=== PATIENT | male | born 1960 | race Native Hawaiian/Other Pacific Islander ===

== ENCOUNTER 2018-02-09 12:39 | Emergency (ER) | payer BC ==
[2018-02-09 12:53] VITALS: TEMP 97.5; O2SAT 100
[2018-02-09] MEDS ORDERED: Sodium Chloride 0.9% 1,000 ML IV ONE (13:00)
[2018-02-09 13:05] LABS: SQUAMOUS EPITHIAL 1 /hpf (0-5); URINE BACTERIA OCC (<OCC); URINE BILIRUBIN NEGATIVE (NEGATIVE); URINE BLOOD 3+ (NEGATIVE); URINE CLARITY Hazy (Clear); URINE COLOR Yellow (YELLOW); URINE GLUCOSE (UA) NORMAL (Normal); URINE LEUKOCYTE ESTERASE NEG Leu/uL (Negative); URINE PROTEIN 1+ mg/dL (NEGATIVE); URINE UROBILINOGEN NORMAL mg/dL (0.2-1.0)
[2018-02-09] MEDS ORDERED: Sodium Chloride 0.9% 1,000 ML ONE (13:06)
[2018-02-09 13:10] LABS: BASO # 0.1 K/uL (0.0-0.2); BASO % 0.7 % (0.0-2.0); EOS # 0.4 K/uL (0.0-0.7); EOS % 3.7 % (0.0-4.0); HEMOGLOBIN 13.3 g/dL (12.0-18.0); LYMPH % 20.4 % (20.0-40.0); MEAN CELL VOLUME 88.4 fL (80.0-94.0); MEAN CORPUSCULAR HEMOGLOBIN 30.4 pg (27.0-31.0); MEAN CORPUSCULAR HGB CONC 34.4 g/dL (33.0-37.0); MEAN PLATELET VOLUME 8.1 fL (7.2-11.7); MONO # 0.8 K/uL (0.0-0.8); MONO % 7.9 % (0.0-10.0); NEUT # 6.7 K/uL (1.8-7.0); NEUT % 67.3 % (50.0-75.0); NRBC % 0.1 % (0.0-2.0); RBC 4.38 Mil/uL (4.40-5.90); RED CELL DISTRIBUTION WIDTH 12.5 % (11.5-14.5); WHITE BLOOD COUNT 9.9 K/uL (4.8-10.8)
[2018-02-09 13:14] LABS: URINE URIC ACID CRYSTALS FEW /hpf (<OCC)
[2018-02-09 13:50] LABS: ALB/GLOB RATIO 1.7 (1.0-2.1); ALBUMIN 4.8 g/dL (3.5-5.0); ALT/SGPT 26 U/L (21-72); AST/SGOT 31 U/L (17-59); BLOOD UREA NITROGEN 18 mg/dL (9-20); GFR NON-AFRICAN AMERICAN > 60; LIPASE 222 U/L (23-300)
--- NOTE | 2018-02-09 14:26 | CT ---
Date of service: 02/09/2018 PROCEDURE: CT Abdomen and Pelvis without intravenous contrast HISTORY: R flank sudden, ? renal colic COMPARISON: None. TECHNIQUE: Without contrast.. Contrast dose: Radiation dose: Total exam DLP = 960 mGy-cm. This CT exam was performed using one or more of the following dose reduction techniques: Automated exposure control, adjustment of the mA and/or kV according to patient size, and/or use of iterative reconstruction technique. FINDINGS: LOWER THORAX: Unremarkable. LIVER: Unremarkable. No gross lesion or ductal dilatation. GALLBLADDER AND BILE DUCTS: Unremarkable. PANCREAS: Unremarkable. No gross lesion or ductal dilatation. SPLEEN: Unremarkable. ADRENALS: Unremarkable. No mass. KIDNEYS AND URETERS: 5 to 6 mm proximal right ureteral calculus resulting in right hydro ureteral nephrosis.. Multiple bilateral renal masses many are exophytic and compatible with cysts. However many-primarily the smaller bilateral renal masses are hyperdense-less than 1 cm in size-their etiology is indeterminate-tiny hemorrhagic cysts can simulate this. follow-up imaging to ensure stability recommended. VASCULATURE: Phleboliths-pelvis no aortic aneurysm. There is presence of aortic atherosclerotic calcification and mural plaque on cross sectional studies. BOWEL: There is incomplete focal distension focal peristalsis and/or focal colonic mural thickening-rectosigmoid (series 2, image 71). Findings are indeterminate. Circumferential rectal mural thickening perceived. Moderate stool throughout the transverse colon. Right sub mucosal edema perceived clinical gastroenterology follow-up recommended. Correlate with any recent colonoscopy. If none, gastroenterology follow-up recommended APPENDIX: Unremarkable. Normal appendix. PERITONEUM: Unremarkable. No free fluid. No free air. LYMPH NODES: Unremarkable. No enlarged lymph nodes. BLADDER: Incompletely distended relative bladder wall generalized thickening-nonspecific given degree of distension. REPRODUCTIVE: Prostatic calcification prostate 3.1 x 4.6 cm on axial imaging BONES: No acute fracture. OTHER FINDINGS: Fatty bilateral groin hernias. No bowel containing hernias appreciated IMPRESSION: 5 to 6 mm proximal right ureteral calculus resulting in right hydro ureteral nephrosis. Multiple other findings as detailed above.
--- NOTE | 2018-02-09 14:31 | C.PDOC ---
History Of Present Illness 57 y/o male presents to the ER complaining of sudden onset of right flank pain which began today. Patient states that the pain is non-radiating. Patient denies having fever, chills, dysuria, hematuria, and hx of renal colic. Time Seen by Provider: 02/09/18 12:59 Chief Complaint (Nursing): Male Genitourinary History Per: Patient History/Exam Limitations: no limitations Onset/Duration Of Symptoms: Hrs Current Symptoms Are (Timing): Still Present Severity: Moderate Past Medical History Reviewed: Historical Data, Nursing Documentation, Vital Signs Vital Signs: Last Vital Signs Temp 97.5 F L 02/09/18 12:50 Pulse 52 L 02/09/18 12:50 Resp 19 02/09/18 12:50 BP 180/69 H 02/09/18 12:50 Pulse Ox 100 02/09/18 12:50 - Medical History PMH: Hypercholesterolemia Other Surgeries: Hx of surgeries Family History: States: No Known Family Hx - Social History Hx Alcohol Use: No Hx Substance Use: No - Immunization History Hx Tetanus Toxoid Vaccination: No Hx Influenza Vaccination: No Hx Pneumococcal Vaccination: No Review Of Systems Except As Marked, All Systems Reviewed And Found Negative. Constitutional: Negative for: Fever, Chills Gastrointestinal: Negative for: Nausea, Vomiting Genitourinary: Negative for: Dysuria, Hematuria Musculoskeletal: Positive for: Other (right flank pain) Physical Exam - Physical Exam Appears: Non-toxic, No Acute Distress Skin: Normal Color, Warm, Dry Head: Atraumatic, Normacephalic Eye(s): bilateral: Normal Inspection Nose: Normal Oral Mucosa: Moist Neck: Supple Chest: Symmetrical Cardiovascular: Rhythm Regular Respiratory: Normal Breath Sounds, No Rales, No Rhonchi, No Wheezing Gastrointestinal/Abdominal: Soft, No Tenderness, No Guarding, No Rebound, Other (dull to percussion) Back: CVA Tenderness (right sided CVA tenderness) Neurological/Psych: Oriented x3, Normal Speech ED Course And Treatment - Laboratory Results Result Diagrams: 02/09/18 13:07 02/09/18 13:07 Lab Interpretation: Abnormal (ua 1200 RBC's) O2 Sat by Pulse Oximetry: 100 (RA) Pulse Ox Interpretation: Normal - CT Scan/US CT-Abd & Pelv. Other Rad Studies (CT/US): Read By Radiologist, Radiology Report Reviewed CT/US Interpretation: Date of service: 02/09/2018. PROCEDURE: CT Abdomen and Pelvis without intravenous contrast. HISTORY: R flank sudden, ? renal colic. COMPARISON: None. TECHNIQUE: Without contrast.. Contrast dose: Radiation dose: Total exam DLP = 960 mGy-cm. This CT exam was performed using one or more of the following dose reduction techniques: Automated exposure control, adjustment of the mA and/or kV according to patient size, and/or use of iterative reconstruction technique. FINDINGS: LOWER THORAX: Unremarkable. LIVER: Unremarkable. No gross lesion or ductal dilatation. GALLBLADDER AND BILE DUCTS: Unremarkable. PANCREAS: Unremarkable. No gross lesion or ductal dilatation. SPLEEN: Unremarkable. ADRENALS: Unremarkable. No mass. KIDNEYS AND URETERS: 5 to 6 mm proximal right ureteral calculus resulting in right hydro ureteral nephrosis.. Multiple bilateral renal masses many are exophytic and compatible with cysts. However many-primarily the smaller bilateral renal masses are hyperdense-less than 1 cm in size-their etiology is indeterminate- tiny hemorrhagic cysts can simulate this. follow-up imaging to ensure stability recommended. VASCULATURE: Phleboliths-pelvis no aortic aneurysm. There is presence of aortic atherosclerotic calcification and mural plaque on cross sectional studies. BOWEL: There is incomplete focal distension focal peristalsis and/or focal colonic mural thickening-rectosigmoid (series 2, image 71). Findings are indeterminate. Circumferential rectal mural thickening perceived. Moderate stool throughout the transverse colon. Right sub mucosal edema perceived clinical gastroenterology follow-up recommended. Correlate with any recent colonoscopy. If none, gastroenterology follow-up recommended. APPENDIX: Unremarkable. Normal appendix. PERITONEUM: Unremarkable. No free f luid. No free air. LYMPH NODES: Unremarkable. No enlarged lymph nodes. BLADDER: Incompletely distended relative bladder wall generalized thickening- nonspecific given degree of distension. REPRODUCTIVE: Prostatic calcification prostate 3.1 x 4.6 cm on axial imaging. BONES: No acute fracture. OTHER FINDINGS: Fatty bilateral groin hernias. No bowel containing hernias appreciated. IMPRESSION: 5 to 6 mm proximal right ureteral calculus resulting in right hydro ureteral nephrosis. Multiple other findings as detailed above. Medical Decision Making Medical Decision Making: R renal colic 3-6 mg R proximal stone Disposition Doctor Will See Patient In The: Office Counseled Patient/Family Regarding: Studies Performed, Diagnosis - Disposition Referrals: Yamile Belcher MD [Medical Doctor] - Benny Nunez MD [Staff Provider] - Disposition: HOME/ ROUTINE Disposition Time: 14:32 Condition: GOOD Additional Instructions: drink plenty of fluids strain all urine to find the 3-6 mg renal calculus/stone Motrin/Advil 600 mg every 6 hours as needed for pain Tramadol 50 mg (narcotic pain med) 1 tab every 4 hours as needed for more severe pain Follow-up w Dr. Nunez- Urology Planning Assistant- for further eval as needed Prescriptions: traMADol [Ultram] 50 mg PO Q6H PRN #10 tab PRN Reason: pain Instructions: Renal Colic Forms: [employer] (Lithuanian) - Clinical Impression Clinical Impression: Renal colic on right side - Scribe Statement The provider has reviewed the documentation as recorded by the Scribe Rubi Gurrola Provider Attestation: All medical record entries made by the Scribe were at my direction and personally dictated by me. I have reviewed the chart and agree that the record accurately reflects my personal performance of the history, physical exam, medical decision making, and the department course for this patient. I have also personally directed, reviewed, and agree with the discharge instructions and disposition.
[2018-02-09 15:44] VITALS: BP 144/73; PULSE 59; RESP 18
--- NOTE | 2018-02-11 07:33 | CARD ---
APPROVED REPORT Date of service: 02/09/2018 EKG Measurement Heart [id number] <Conclusion> Sinus bradycardia Otherwise normal ECG
== END 2018-02-09 15:46 | disposition home or self-care (01) ==
LOC: C.ER 12:39
DX: N13.2 Hydronephrosis with renal and ureteral calculous obstruction (principal)
CPT/HCPCS: 74176; 80053; 81001; 83690; 85025; 93005; 96361; 96374; 99284; J1885; J7030

== ENCOUNTER 2018-02-10 11:45 | Inpatient (IN) | payer BC ==
--- NOTE | 2018-02-10 12:09 | C.PDOC ---
History Of Present Illness 57 year old male was evaluated in this ED yesterday for right-sided flank pain and was discharged home with diagnosis of renal stone. Patient returns to the ED today with complaint of ongoing pain that is associated with nausea and vomiting. Patient's attempted to schedule an appointment with Dr. Nunez, but was unable to do so and patient was brought to the ED for further evaluation. He denies fever, chills. Time Seen by Provider: 02/10/18 11:49 Chief Complaint (Nursing): GI Problem History Per: Patient History/Exam Limitations: no limitations Onset/Duration Of Symptoms: Hrs, Persistent Current Symptoms Are (Timing): Still Present Radiation Of Pain To:: Flank (right) Quality Of Discomfort: "Pain" Associated Symptoms: Nausea, Vomiting. denies: Fever, Chills Additional History Per: Patient Past Medical History Reviewed: Historical Data, Nursing Documentation, Vital Signs Vital Signs: Last Vital Signs Temp 97.9 F 02/10/18 11:54 Pulse 58 L 02/10/18 11:54 Resp 18 02/10/18 11:54 BP 150/78 02/10/18 11:54 Pulse Ox 99 02/10/18 11:54 - Medical History PMH: Hypercholesterolemia, Kidney Stones, Chronic Kidney Disease Surgical History: No Surg Hx Family History: States: Unknown Family Hx - Social History Hx Alcohol Use: No Hx Substance Use: No - Immunization History Hx Tetanus Toxoid Vaccination: No Hx Influenza Vaccination: No Hx Pneumococcal Vaccination: No Review Of Systems Constitutional: Negative for: Fever, Chills Gastrointestinal: Positive for: Nausea, Vomiting Musculoskeletal: Positive for: Other (right flank pain ) Physical Exam - Physical Exam Appears: Non-toxic, No Acute Distress Skin: Normal Color, Warm, Dry Head: Atraumatic, Normacephalic Eye(s): bilateral: Normal Inspection Oral Mucosa: Moist Neck: Supple Chest: Symmetrical, No Deformity, No Tenderness Cardiovascular: Rhythm Regular, No Murmur Respiratory: Normal Breath Sounds, No Rales, No Rhonchi, No Wheezing Gastrointestinal/Abdominal: Soft, No Tenderness, No Guarding Back: CVA Tenderness (right) Extremity: Normal ROM, Capillary Refill (less than 2 seconds ) Neurological/Psych: Oriented x3, Normal Speech, Normal Cognition ED Course And Treatment O2 Sat by Pulse Oximetry: 99 (on RA) Pulse Ox Interpretation: Normal Medical Decision Making Medical Decision Making: Assessment: renal colic Plan: * bloodwork * urinalysis * Abdomen XR * Toradol IVP * Zofran IVP * reassess and disposition Progress: Bloodwork, urinalysis, Abdomen XR ordered and reviewed. Toradol IVP and Zofran IVP given. Patient will be admitted to Dr. Belcher's service with Dr. Nunez for consult. Disposition Discussed With DrBrooke: Yamile Belcher Doctor Will See Patient In The: Hospital Counseled Patient/Family Regarding: Studies Performed, Diagnosis - Disposition Disposition: HOSPITALIZED Disposition Time: 12:09 Condition: FAIR - Clinical Impression Clinical Impression: Renal stone - Scribe Statement The provider has reviewed the documentation as recorded by the Scribe (Yancy Hammond) Provider Attestation: All medical record entries made by the Scribe were at my direction and personally dictated by me. I have reviewed the chart and agree that the record accurately reflects my personal performance of the history, physical exam, medical decision making, and the department course for this patient. I have also personally directed, reviewed, and agree with the discharge instructions and disposition.
[2018-02-10 12:25] LABS: BASO % 0.4 % (0.0-2.0); EOS # 0.1 K/uL (0.0-0.7); HEMOGLOBIN 12.2 g/dL (12.0-18.0); LYMPH # 0.9 K/uL (1.0-4.3); LYMPH % 9.3 % (20.0-40.0); MEAN CELL VOLUME 87.8 fL (80.0-94.0); MEAN CORPUSCULAR HEMOGLOBIN 30.4 pg (27.0-31.0); MEAN CORPUSCULAR HGB CONC 34.6 g/dL (33.0-37.0); MEAN PLATELET VOLUME 8.3 fL (7.2-11.7); MONO # 0.7 K/uL (0.0-0.8); MONO % 6.6 % (0.0-10.0); NEUT # 8.3 K/uL (1.8-7.0); NEUT % 82.7 % (50.0-75.0); PLATELET COUNT 191 K/uL (130-400); RBC 4.03 Mil/uL (4.40-5.90); RED CELL DISTRIBUTION WIDTH 12.2 % (11.5-14.5); WHITE BLOOD COUNT 10.1 K/uL (4.8-10.8)
--- NOTE | 2018-02-10 12:30 | RAD ---
Date of service: 02/10/2018 HISTORY: evaluate kidney stone COMPARISON: CT 02/09/2018 FINDINGS: BOWEL: Normal. No obstruction. No free air. No abnormal intra-abdominal calcifications are identified. No hepatic or splenic enlargement. The psoas margins are preserved. Left renal contour is well-defined. The right renal contour is not well defined. BONES: Normal. OTHER FINDINGS: None. IMPRESSION: No ureteral calculus identified.
[2018-02-10] MEDS ORDERED: Sodium Chloride 0.9% 1,000 ML IV ONE (12:44)
[2018-02-10 12:55] LABS: ALB/GLOB RATIO 1.5 (1.0-2.1); ALBUMIN 3.9 g/dL (3.5-5.0); ALT/SGPT 24 U/L (21-72); AST/SGOT 25 U/L (17-59); BLOOD UREA NITROGEN 13 mg/dL (9-20); CALCIUM 7.8 mg/dl (8.6-10.4); GFR NON-AFRICAN AMERICAN > 60; LIPASE 54 U/L (23-300)
--- NOTE | 2018-02-10 12:59 | CP.PCM.HP ---
History of Present Illness - History of Present Illness History of Present Illness: 57 y.o male with no significant PMH othjer than Borderline Glaucoma, Elevated sugar and cholesterol came to ER due to all night long vomiting , right back pain and dizziness. Patient was given Tylenol number 3 for pain aand zofran for vomiting and IVF . Patient had temporary relief but symptoms recur befdore the medications are due. Patient develoed weakness dizziness. He denies fever diarrhea chest pain syncope. Patient went to see Urologist today but ended up in ER due to worsening dizziness pain and vomiting. patient was in ER yesterday due to untolerable acute right back pain, found to have Ureteral stone. patient was given pain meds and IVF ,got better , and sent home to follow up with urologist PMH no DM no Hypertension has borderline Cholesterol and AIC 6.2 -6.5 and started on metformin and statin He has Glaucoma- on 2 eye drops Combigan and Latanoprost Surgery left knee arthroscopy NKDA NON ETOH non Smoker Present on Admission - Present on Admission Any Indicators Present on Admission: No History of DVT/PE: No History of Uncontrolled Diabetes: No Urinary Catheter: No Decubitus Ulcer Present: No Review of Systems - Constitutional Constitutional: Anorexia, Weakness - EENT Eyes: absent: Other Visual Disturbances Ears: Dizziness Nose/Mouth/Throat: absent: Nasal Congestion, Sinus Pain - Cardiovascular Cardiovascular: Lightheadedness. absent: Chest Pain, Diaphoresis, Rapid Heart Rate, Syncope - Respiratory Respiratory: absent: Cough, Dyspnea, Chest Congestion - Gastrointestinal Gastrointestinal: Abdominal Pain (right back ), Vomiting (all night long). abse nt: Diarrhea - Genitourinary Genitourinary: Hx Renal/Bladder Calculi (renal- diagnosed yesterday ). absent: Difficulty Urinating, Dysuria - Musculoskeletal Musculoskeletal: absent: Abnormal Gait, Deformity, Myalgias, Stiffness - Integumentary Integumentary: absent: Rash, Skin Pain - Neurological Neurological: Dizziness. absent: Abnormal Gait, Abnormal Speech, Behavioral Changes, Convulsions - Psychiatric Psychiatric: absent: Behavioral Changes, Confusion, Depression - Endocrine Endocrine: absent: Cold Intolorance, Flushing, Heat Intolorance, Palpitations - Hematologic/Lymphatic Hematologic: absent: Easy Bleeding, Easy Bruising Past Patient History - Infectious Disease Hx of Infectious Diseases: None - Past Social History Smoking Status: Never Smoked - CARDIAC Hx Hypercholesterolemia: Yes - HEENT Hx HEENT Problems: Yes Hx Glaucoma: Yes (both eyes) - RENAL Hx Chronic Kidney Disease: Yes Hx Kidney Stones: Yes - ENDOCRINE/METABOLIC Hx Diabetes Mellitus Type 2: Yes - GASTROINTESTINAL Hx Gastrointestinal Disorders: Yes Other/Comment: acute cholecystitis DX 02/09/2018 - PSYCHIATRIC Hx Substance Use: No - SURGICAL HISTORY Hx Surgeries: Yes Hx Orthopedic Surgery: Yes (Left knee arthroscopy) - ANESTHESIA Hx Anesthesia Reactions: No Meds Allergies/Adverse Reactions: Allergies Allergy/AdvReac Type Severity Reaction Status Date / Time No Known Allergies Allergy Verified 02/10/18 11:54 Physical Exam - Constitutional Appears: Well, No Acute Distress - Head Exam Head Exam: ATRAUMATIC, NORMOCEPHALIC - Eye Exam Eye Exam: Normal appearance. absent: Nystagmus, Periorbital tenderness - ENT Exam ENT Exam: Mucous Membranes Dry - Neck Exam Neck exam: Positive for: Full Rom. Negative for: Tenderness - Respiratory Exam Respiratory Exam: Clear to Auscultation Bilateral, NORMAL BREATHING PATTERN - Cardiovascular Exam Cardiovascular Exam: REGULAR RHYTHM - GI/Abdominal Exam GI & Abdominal Exam: Normal Bowel Sounds, Soft. absent: Tenderness ( right back pain- episodic) - Extremities Exam Extremities exam: Positive for: full ROM, normal inspection. Negative for: joint swelling, pedal edema, tenderness - Back Exam Back exam: tenderness (on and off right ). absent: rash noted - Neurological Exam Neurological exam: Alert, Normal Gait, Oriented x3, Reflexes Normal - Psychiatric Exam Psychiatric exam: Normal Affect, Normal Mood - Skin Skin Exam: Intact, Normal Color Results - Vital Signs Recent Vital Signs: Last Vital Signs Temp 97.9 F 02/10/18 11:54 Pulse 58 L 02/10/18 11:54 Resp 18 02/10/18 11:54 BP 150/78 02/10/18 11:54 Pulse Ox 99 02/10/18 12:18 - Labs Result Diagrams: 02/10/18 12:22 02/10/18 12:22 Labs: Laboratory Results - last 24 hr 02/10/18 12:22 WBC 10.1 RBC 4.03 L Hgb 12.2 Hct 35.4 MCV 87.8 MCH 30.4 MCHC 34.6 RDW 12.2 Plt Count 191 MPV 8.3 Neut % (Auto) 82.7 H Lymph % (Auto) 9.3 L [place] % (Auto) 6.6 Eos % (Auto) 1.0 Baso % (Auto) 0.4 Neut # (Auto) 8.3 H Lymph # (Auto) 0.9 L [place] # (Auto) 0.7 Eos # (Auto) 0.1 Baso # (Auto) 0.0 Assessment & Plan - Assessment and Plan (Free Text) Assessment: Patient with no significant PMH-admitted for observation renal colic vomiting Nephrolithiasis stone lodged in the uper third /ureter right further discussion with Urologist Dr Rey NPO- plan for Stent today- awaiting avilability of OR(Overbooked) stent placed- patient reports feeling better had discussion with Dr Rey- to follow up on Thursday Vomiting with Dehydration IVF supportive discussion feeling better after stent medication accordingly Pain control supportive discussion GI prophylaxis - Date & Time Date: 02/10/18 Time: 13:13
[2018-02-10 13:08] LABS: NEUTROPHIL 82 % (50-75); TOTAL CELLS COUNTED 100
[2018-02-10 13:09] LABS: MONOCYTE 6 % (0-10); PLATELET ESTIMATE NORMAL (NORMAL)
[2018-02-10 13:10] LABS: LYMPHOCYTE 12 % (20-40)
[2018-02-10] MEDS ORDERED: Sodium Chloride 0.9% 1,000 ML ONE (13:17)
[2018-02-10] MEDS ORDERED: cefTRIAXone 1 gm 1 GM/100 ML BAG IVPB ONE (13:59)
[2018-02-10] MEDS ORDERED: Iohexol 240 (50 ml) ONE (13:59)
[2018-02-10] MEDS ORDERED: Lidocaine 2% Jelly (Uro-Jet) ONE (13:59)
[2018-02-10 14:05] LABS: URINE BILIRUBIN NEGATIVE (NEGATIVE); URINE BLOOD 3+ (NEGATIVE); URINE CLARITY Clear (Clear); URINE COLOR Yellow (YELLOW); URINE GLUCOSE (UA) 1+ mg/dL (Normal); URINE LEUKOCYTE ESTERASE NEG Leu/uL (Negative); URINE PROTEIN NEGATIVE (NEGATIVE); URINE UROBILINOGEN NORMAL mg/dL (0.2-1.0)
[2018-02-10] MEDS ORDERED: Propofol 10 mg/ml Inj (20 ML) ONE (14:24)
[2018-02-10] MEDS ORDERED: Midazolam 2 MG/2 ML VIAL ONE (14:24)
[2018-02-10] MEDS ORDERED: HYDROmorphone 0.5 mg/0.5 ml ISec IVP PRN (14:59)
--- NOTE | 2018-02-10 15:22 | RAD ---
Date of service: 02/10/2018 HISTORY: RT URETERAL STONE COMPARISON: 02/10/2018 at 12 p.m. FINDINGS: BOWEL: Normal bowel gas pattern. Right ureteral stent noted. No ureteral or renal calculus identified. BONES: Normal. OTHER FINDINGS: None. IMPRESSION: Right ureteral stent.
[2018-02-10 16:04] VITALS: BP 152/85; PULSE 65; RESP 20; TEMP 97.9; O2SAT 96
--- NOTE | 2018-02-10 16:23 | CP.PCM.DIS ---
Provider - Provider Date of Admission: 02/10/18 12:07 Attending physician: Yamile Belcher MD Time Spent in preparation of Discharge (in minutes): 30 Hospital Course - Lab Results Lab Results: Most Recent Lab Values WBC 10.1 K/uL (4.8-10.8) 02/10/18 12:22 RBC 4.03 Mil/uL (4.40-5.90) L 02/10/18 12:22 Hgb 12.2 g/dL (12.0-18.0) 02/10/18 12:22 Hct 35.4 % (35.0-51.0) 02/10/18 12:22 MCV 87.8 fL (80.0-94.0) 02/10/18 12:22 MCH 30.4 pg (27.0-31.0) 02/10/18 12:22 MCHC 34.6 g/dL (33.0-37.0) 02/10/18 12:22 RDW 12.2 % (11.5-14.5) 02/10/18 12:22 Plt Count 191 K/uL (130-400) 02/10/18 12:22 MPV 8.3 fL (7.2-11.7) 02/10/18 12: Neut % (Auto) 82.7 % (50.0-75.0) H 02/10/18 12:22 Lymph % (Auto) 9.3 % (20.0-40.0) L 02/10/18 12:22 [place] % (Auto) 6.6 % (0.0-10.0) 02/10/18 12:22 Eos % (Auto) 1.0 % (0.0-4.0) 02/10/18 12:22 Baso % (Auto) 0.4 % (0.0-2.0) 02/10/18 12:22 Neut # (Auto) 8.3 K/uL (1.8-7.0) H 02/10/18 12:22 Lymph # (Auto) 0.9 K/uL (1.0-4.3) L 02/10/18 12:22 [place] # (Auto) 0.7 K/uL (0.0-0.8) 02/10/18 12:22 Eos # (Auto) 0.1 K/uL (0.0-0.7) 02/10/18 12:22 Baso # (Auto) 0.0 K/uL (0.0-0.2) 02/10/18 12:22 Neutrophils % (Manual) 82 % (50-75) H 02/10/18 12:22 Lymphocytes % (Manual) 12 % (20-40) L 02/10/18 12:22 Monocytes % (Manual) 6 % (0-10) 02/10/18 12:22 Platelet Estimate Normal (NORMAL) 02/10/18 12:22 Sodium 138 mmol/L (132-148) 02/10/18 12:22 Potassium 3.5 mmol/L (3.6-5.2) L 02/10/18 12:22 Chloride 105 mmol/L (98-107) 02/10/18 12:22 Carbon Dioxide 21 mmol/L (22-30) L 02/10/18 12:22 Anion Gap 15 (10-20) 02/10/18 12:22 BUN 13 mg/dL (9-20) 02/10/18 12:22 Creatinine 1.2 mg/dL (0.8-1.5) 02/10/18 12:22 Est GFR ( Amer) > 60 02/10/18 12:22 Est GFR (Non-Af Amer) > 60 02/10/18 12:22 Random Glucose 147 mg/dL (75-110) H 02/10/18 12:22 Calcium 7.8 mg/dl (8.6-10.4) L 02/10/18 12:22 Total Bilirubin 0.9 mg/dL (0.2-1.3) 02/10/18 12:22 AST 25 U/L (17-59) 02/10/18 12:22 ALT 24 U/L (21-72) 02/10/18 12:22 Alkaline Phosphatase 61 U/L (38-126) 02/10/18 12:22 Total Protein 6.4 g/dL (6.3-8.3) 02/10/18 12:22 Albumin 3.9 g/dL (3.5-5.0) 02/10/18 12:22 Globulin 2.5 gm/dL (2.2-3.9) 02/10/18 12:22 Albumin/Globulin Ratio 1.5 (1.0-2.1) 02/10/18 12:22 Lipase 54 U/L (23-300) 02/10/18 12:22 Urine Color Yellow (YELLOW) 02/10/18 13:55 Urine Clarity Clear (Clear) 02/10/18 13:55 Urine pH 6.0 (5.0-8.0) 02/10/18 13:55 Ur Specific [place] 1.014 (1.003-1.030) 02/10/18 13:55 Urine Protein Negative mg/dL (NEGATIVE) 02/10/18 13:55 Urine Glucose (UA) 1+ mg/dL (Normal) H 02/10/18 13:55 Urine Ketones Negative mg/dL (NEGATIVE) 02/10/18 13:55 Urine Blood 3+ (NEGATIVE) H 02/10/18 13:55 Urine Nitrate Negative (NEGATIVE) 02/10/18 13:55 Urine Bilirubin Negative (NEGATIVE) 02/10/18 13:55 Urine Urobilinogen Normal mg/dL (0.2-1.0) 02/10/18 13:55 Ur Leukocyte Esterase Neg Antonia/uL (Negative) 02/10/18 13:55 Urine WBC (Auto) 4 /hpf (0-5) 02/10/18 13:55 Urine RBC (Auto) 62 /hpf (0-3) H 02/10/18 13:55 - Hospital Course Hospital Course: admitted for vomiting pain ,stone lodged in upper uretr= had cystoscopy and stent - after which patient felt better- -discussion with Dr Rey - to follow up in the clinic on Thursday Discharge Exam - Head Exam Head Exam: ATRAUMATIC, NORMOCEPHALIC - Eye Exam Eye Exam: Normal appearance - ENT Exam ENT Exam: Mucous Membranes Moist - Neck Exam Neck exam: Full Rom - Respiratory Exam Respiratory Exam: Clear to PA & Lateral, NORMAL BREATHING PATTERN - Cardiovascular Exam Cardiovascular Exam: REGULAR RHYTHM - GI/Abdominal Exam GI & Abdominal Exam: Normal Bowel Sounds, Soft. absent: Tenderness - Extremities Exam Extremities exam: full ROM, normal inspection - Neurological Exam Neurological exam: Alert, Normal Gait, Oriented x3 - Psychiatric Exam Psychiatric exam: Normal Affect, Normal Mood - Skin Skin Exam: Intact, Normal Color Discharge Plan - Follow Up Plan Condition: FAIR Disposition: HOME/ ROUTINE Referrals: Benny Nunez MD [Staff Provider] -
[2018-02-10] MEDS ORDERED: Pneumococcal 23-Valent Vaccine IM ONE (16:45)
[2018-02-10] MEDS ORDERED: Influenza Vaccine 60 MCG/0.5 ML SYR (3 yr & up) IM ONE (16:45)
--- NOTE | 2018-02-12 08:32 | OP ---
PROCEDURE DATE: 02/10/2018 PREOPERATIVE DIAGNOSIS: Right mid ureteral stone with right hydronephrosis. POSTOPERATIVE DIAGNOSIS: Right mid ureteral stone with right hydronephrosis. PROCEDURE: Cystoscopy with insertion of right indwelling ureteral stent. SURGEON: Martin Rey MD. OPERATIVE INDICATIONS: The patient was brought to the operating room. He had been n.p.o. He is a mild diabetic and has high lipids. He had pain on his right side since yesterday and a CAT scan that I previously reviewed, showed a right mid ureteral stone with obstruction above that point. I explained to the patient I would be inserting a temporary ureteral drain called a stent to allow the kidney to decompress and this pain to be relieved and that other procedures down the road would have to be scheduled once I see him again in the office. DESCRIPTION OF PROCEDURE: He is brought the operating room premedicated with 1 g of Rocephin, is prepped and draped in usual fashion, placed on sequential compression. A 22-Jamaican scope was introduced atraumatically. The prostate was slightly enlarged and did show some prostatic mucosal calculi. The bladder itself was unremarkable. No tumors, calculi or erythema were seen. We now empty the bladder and sent to specimen culture. Prior to the procedure I reviewed a stat KUB that was done in the ER and what could not define any stones. The right ureteral orifice was intubated with an open-ended ureteral catheter and then a flexible Glidewire was placed up in to the right kidney with smooth coiling. We now removed the open-ended catheter and over the Glidewire placed a Cook multilength 6-Jamaican stent atraumatically using cystoscopic and fluoroscopic control. The patient tolerated procedure well. Martin Rey MD
--- NOTE | 2018-02-12 09:41 | RAD ---
Date of service: 02/10/2018 PROCEDURE: Intraoperative Fluoroscopy. HISTORY: RT MID-URETERAL STONE FINDINGS: Fluoroscopic assistance was provided. Fluoroscopy time = 22.2 sec. Radiation dose = 0.96844 mGy-cm. Please refer to the operative report from MESSI Julio.
== END 2018-02-10 17:11 | disposition home or self-care (01) | DRG 661 ==
LOC: C.ER 11:45 → C.9E 12:07 → C.5S 14:28
PROVIDERS: ADMIT Internal Medicine; ATTEND Internal Medicine
PROC: 0T768DZ Dilation of Right Ureter with Intraluminal Device, Via Natural or Artificial Opening Endoscopic (ICD-10-PCS; principal; 2018-02-10 11:00)
DX: N13.2 Hydronephrosis with renal and ureteral calculous obstruction (principal); N18.9 Chronic kidney disease, unspecified; E86.0 Dehydration; H40.9 Unspecified glaucoma; E11.22 Type 2 diabetes mellitus with diabetic chronic kidney disease; E78.00 Pure hypercholesterolemia, unspecified

== ENCOUNTER 2018-03-01 08:29 | Day surgery (SDC) | payer BC ==
[2018-03-01] MEDS ORDERED: Midazolam 2 MG/2 ML VIAL ONE (11:08)
[2018-03-01] MEDS ORDERED: Propofol 10 mg/ml Inj (20 ML) ONE (11:08)
[2018-03-01] MEDS ORDERED: Iohexol 240 (50 ml) ONE (11:10)
[2018-03-01] MEDS: cefTRIAXone 1 gm 1 GM/100 ML BAG IVPB ONE ×2 (11:20→11:36)
[2018-03-01] MEDS ORDERED: HYDROmorphone 0.5 mg/0.5 ml ISec IVP PRN (12:09)
[2018-03-01 14:16] VITALS: BP 148/85; PULSE 71; RESP 18; TEMP 97.9; O2SAT 98
--- NOTE | 2018-03-01 16:40 | RAD ---
Date of service: 03/01/2018 PROCEDURE: Intraoperative Fluoroscopy. HISTORY: RT. URETER CALCULI FINDINGS: Fluoroscopic assistance was provided. Fluoroscopy time = 39.7 sec. Radiation dose = 0.53215 mGy-cm. Please refer to the operative report from Dr. RIDDLE, [place].
--- NOTE | 2018-03-02 16:17 | RAD ---
Date of service: 03/01/2018 HISTORY: RT. URETER CALCULI COMPARISON: 02/19/2018 FINDINGS: BOWEL: Normal. No obstruction. No free air. 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 OTHER FINDINGS: Right double-J ureteral stent proximal core all projects over expected position of right intrarenal pelvis distal core all over expected bladder as before. No calculi along the stent appreciated. Left and right singular appearing phleboliths unchanged. IMPRESSION: Right ureteral stent in place. No urolithiasis appreciated.
--- NOTE | 2018-03-04 06:14 | OP ---
PROCEDURE DATE: 03/01/2018 UROLOGY OPERATIVE REPORT PREOPERATIVE DIAGNOSIS: Right ureteral calculus. POSTOPERATIVE DIAGNOSES: Right ureteral calculus and cystolithiasis. PROCEDURES: 1. Cystoscopy. 2. Right ureteroscopy. 3. Laser ureteral lithotripsy. 4. Insertion of left ureteral stent. OPERATING SURGEON: Veronica Swan MD PROCEDURE FOLLOWS: The patient received perioperative antibiotics. The patient was placed in lithotomy position. Genitalia were prepped and draped sterilely. Anesthesia was applied by the anesthesiologist. Procedure was performed under video endoscopic control as well as under fluoroscopic control. The patient received perioperative antibiotics. A sustainability project coordinator film of the abdomen was performed including oblique views. The abdominal x-ray revealed the stent in proper position. There were no radiodense stones seen adjacent to the stent. The CAT scan was reviewed and that demonstrated the calculus within the ureter at approximately the L4 level. A 22-Romanian cystoscope sheath was introduced under direct vision. Urethra, prostate, and bladder were inspected with 30-degree lens. FINDINGS: There was no stricture in the anterior urethra. Prostatic urethra was mildly occlusive. Prostatic urethra was approximately 3 cm in length. There was no bladder tumor. There were bladder stones within the bladder. These were sand like yellow stones with crystal in appearance. There were innumerable sand-like particles which were irrigated free. The stent was identified. The ureteral orifice was identified. A 0.035-inch guidewire was inserted adjacent to the stent and passed up to level of the kidney. The stent was grasped with grasping forceps and brought to the level of the distal endoscope. A second guidewire was inserted up to level of the kidney. Ureteroscopy was performed with a 7-Romanian rigid ureteroscope. Ureteroscope was passed over the working wire under video endoscopic as well as fluoroscopic control. There were multiple small stones, approximately 2 mm in size within the mid and upper ureter. The stones were fragmented with the holmium laser in the dusting mode using 365 micron fiber. There was excellent fragmentation. There were no residual large fragments. The fragments were too small to basket. Attempted basketing was performed with an endo basket. The ureteroscopy confirmed no residual stones. Ureteroscope was passed up to level of the kidney. The ureteroscope was removed under direct vision. There were no residual stones. The ureteral mucosa was intact without damage. A 6-Romanian multi-length stent was inserted over the remaining guidewire. Proper stent position was confirmed with fluoroscopy and endoscopy. The guidewire was removed. The stent was left in place. A distal suture was left to exit from the distal end of the stent per urethra. The bladder was drained. Cystoscope and sheath were removed. Rectal examination/exam under anesthesia was performed. There was no abnormal pelvic mass fixation or induration. Prostate was supple and smooth without fixation, induration or nodularity. The patient tolerated the procedure without complication. Veronica Swan MD cc:
== END 2018-03-01 14:14 | disposition home or self-care (01) ==
LOC: C.SDS 08:29
PROVIDERS: ATTEND Urology
DX: N20.1 Calculus of ureter (principal); I10 Essential (primary) hypertension; E11.9 Type 2 diabetes mellitus without complications; N21.0 Calculus in bladder
CPT/HCPCS: 52356; 74019; 82948; 87086; C1725; C1769; J0696